=== PATIENT | male | born 1990 | race Caucasian/White ===

== ENCOUNTER 2020-01-03 07:31 | Emergency (ER) | payer OTHER ==
[~2020-01-03] VITALS: Ht 182.9 cm; Wt 93.2 kg
[2020-01-03 07:44] VITALS: BP 157/99
[2020-01-03] MEDS ORDERED: triamcinolone acetonide 40mg/ml inj IM ONE (09:10)
== END 2020-01-03 09:35 | disposition home or self-care (01) ==
LOC: ER 07:32
DX: L23.7 Allergic contact dermatitis due to plants, except food (principal); R21 Rash and other nonspecific skin eruption
CPT/HCPCS: 96372; 99283; J3301

== ENCOUNTER 2020-04-18 13:24 | Emergency (ER) | payer OTHER ==
[~2020-04-18] VITALS: Ht 182.9 cm; Wt 93.2 kg
[2020-04-18 13:28] VITALS: BP 141/72
[2020-04-18] MEDS ORDERED: HYDR28CR14 TOP (14:13)
[2020-04-18] MEDS ORDERED: triamcinolone acetonide 40mg/ml inj IM ONE (14:15)
[2020-04-18] MEDS ORDERED: FAMO10TA41 PO (14:15)
== END 2020-04-18 14:26 | disposition home or self-care (01) ==
LOC: ER 13:24
DX: L23.9 Allergic contact dermatitis, unspecified cause (principal); Z79.899 Other long term (current) drug therapy
CPT/HCPCS: 96372; 99283; J3301

== ENCOUNTER 2020-05-15 10:38 | Emergency (ER) | payer OTHER ==
[~2020-05-15] VITALS: Ht 182.9 cm; Wt 11.4 kg
[~2020-05-15 10:38] MED LIST: FAMO10TA41 PO; HYDR28CR14 TOP
[2020-05-15] MEDS ORDERED: AMOX-422 PO (10:57)
== END 2020-05-15 11:33 | disposition home or self-care (01) ==
LOC: ER 10:38
DX: J32.9 Chronic sinusitis, unspecified (principal); Z20.828 Contact with and (suspected) exposure to other viral communicable diseases; Z79.899 Other long term (current) drug therapy
CPT/HCPCS: 36415; 99283

== ENCOUNTER 2020-10-14 09:00 | Emergency (ER) | payer OTHER ==
[~2020-10-14] VITALS: Ht 182.9 cm; Wt 99.1 kg
[2020-10-14 09:05] VITALS: BP 157/76
== END 2020-10-14 09:49 | disposition home or self-care (01) ==
LOC: ER 09:02
DX: J02.9 Acute pharyngitis, unspecified (principal); R09.81 Nasal congestion; R09.89 Other specified symptoms and signs involving the circulatory and respiratory systems; Z79.899 Other long term (current) drug therapy
CPT/HCPCS: 99281

== ENCOUNTER 2021-08-15 10:45 | Outpatient (CLI) | payer OTHER | END 2021-08-15 23:59 | disposition home or self-care (01) | LOC: LAB 10:45 | PROVIDERS: ATTEND Physician Assistant | DX: M25.561 Pain in right knee (principal) | CPT/HCPCS: 73560 ==